=== PATIENT | male | born 1960 | race Caucasian/White ===

== ENCOUNTER 2022-08-30 20:58 | Emergency (ER) | payer OTHER, MEDICAID, SELFPAY ==
[2022-08-30 21:52] VITALS: BP 82/50; PULSE 56; RESP 18; TEMP 36.9; O2SAT 94; BMI 31.9
--- NOTE | 2022-08-30 22:02 | DI.RAD.S_ITS ---
PROCEDURE: XR CHEST 1V INDICATIONS: Possible stroke TECHNIQUE: One view of the chest was acquired. COMPARISON: None. FINDINGS: Surgical changes and devices: None. Lungs and pleura: Lungs are clear. No pleural effusions or pneumothorax. Mediastinum: Mediastinal contours appear normal. Heart size is normal. Bones and chest wall: No suspicious bony lesions. Overlying soft tissues appear unremarkable. IMPRESSION: 1. No acute cardiopulmonary disease. Dictated by: Stefano Hawkins M.D. on 08/30/2022 at 23:51 Approved by: Stefano Hawkins M.D. on 08/30/2022 at 23:51
--- NOTE | 2022-08-30 22:03 | DI.CT.S_ITS ---
PROCEDURE: CT HEAD/BRAIN WO CON INDICATIONS: stroke symptoms TECHNIQUE: Noncontrast 4.5 mm thick angled axial sections acquired from the foramen magnum to the vertex, with coronal and sagittal reformats. For radiation dose reduction, the following was used: automated exposure control, adjustment of mA and/or kV according to patient size. COMPARISON: None. FINDINGS: Image quality: Excellent. CSF spaces: Basal cisterns are patent. No extra-axial fluid collections. Ventricles are normal in size and shape. Brain: No intracranial hemorrhage, mass, or mass effect. Dos Santos-white matter interface appears preserved. Skull and face: Calvarium and visualized facial bones are intact, without suspicious lesions. Sinuses: Visualized sinuses and mastoids are clear. IMPRESSION: 1. No acute intracranial abnormality. Dictated by: Stefano Hawkins M.D. on 08/30/2022 at 23:50 Approved by: Stefano Hawkins M.D. on 08/30/2022 at 23:51
--- NOTE | 2022-08-30 22:31 | ED.HA ---
HPI - Headache General Chief Complaint: Headache Stated Complaint: Vomiting, Hallucinating, Headache Time Seen by Provider: 08/30/22 22:27 Mode of arrival: Ambulatory History of Present Illness HPI Narrative: Patient is a 61-year-old male history of hypertension presents today with headache hallucinations. He reports that he maybe has not been feeling quite right today possibly a little dizzy and lightheaded but able to function without any difficulty. Sat on his porch he and his son smokes some marijuana. Smoked some waited about 30 minutes smoke some more about 30 minutes later he started not feeling right. Started having some hallucinations had a headache. Just not acting quite right. Son called other family members who brought him to the ER. Initially he is actually hypotensive with a blood pressure of 82/50. He is afebrile heart rate is 56. Patient reports that he was at [facility] he had 3 separate surgeries on his right arm. He had a fracture in his humerus. Related Data Home Medications Medication Instructions Recorded Confirmed hydroxyzine HCl 25 mg tablet 25 mg PO PRN PRN Insomnia 08/30/22 08/30/22 lisinopril 20 1 tab PO DAILY 08/30/22 08/30/22 mg-hydrochlorothiazide 25 mg tablet Allergies Allergy/AdvReac Type Severity Reaction Status Date / Time No Known Drug Allergies Allergy Verified 08/30/22 22:00 Review of Systems Review of Systems ROS Unobtainable: All systems reviewed & are unremarkable except as noted in HPI and below Patient History Social History Smoking Status: Former smoker Smoking Status: Former smoker alcohol intake frequency: a few times a week Substance Use Type: marijuana Exam Initial Vital Signs Initial Vital Signs: Vital Signs Temperature 98.5 F 08/30/22 21:52 Pulse Rate 56 L 08/30/22 21:52 Respiratory Rate 18 08/30/22 21:52 Blood Pressure 82/50 L 08/30/22 21:52 Pulse Oximetry 94 08/30/22 21:52 Oxygen Delivery Method Room Air 08/30/22 21:52 GENERAL: Slightly pale 61-year-old male HEENT: Head atraumatic,EOMI, pupils reactive, face symmetric, moist mucous membranes CARDIOVASCULAR: Regular rate and rhythm without murmurs, rubs or gallops. RESPIRATORY: Breath sounds equal bilaterally, no wheezes rales or rhonchi. ABDOMEN: Soft, nontender. Normoactive bowel sounds all 4 quadrants. No guarding or rebound. EXTREMITIES: Normal range of motion, no clubbing or edema. Neurovascularly intact Right arm in splint NEUROLOGICAL: Alert and oriented x4. Moving all extremities SKIN: Warm, dry, no laceration, no petechiae, no rashes or lesions. Course Orders Ordered: ED Orders 08/30/22 22:02 XR chest 1V Stat EKG-12 Lead Stat 08/30/22 22:03 CT head/brain wo con Stat 08/30/22 22:40 Acetaminophen Stat COVID19 -Nasal RAPID Stat Complete Blood Count AUTO DIFF Stat Comprehensive Metabolic Panel Stat ETOH [Ethanol (ETOH)] Stat Lactate (Lactic Acid) Stat Magnesium Stat PTT Partial Thromboplastin Serafin Stat Prothrombin Time INR Stat Troponin & CK Cardiac Panel Stat 08/30/22 22:57 Urine Drug Screen, Rapid Stat 08/30/22 23:22 Blood Culture Stat 08/31/22 02:55 BMP [Basic Metabolic Panel] Stat Discontinued Medications Sodium Chloride (Normal Saline 0.9%) 1,000 mls @ 1,000 mls/hr IV BOLUS ONE Stop: 08/30/22 23:26 Last Infusion: 08/31/22 01:11 Dose: 0 mls/hr Documented By: Admin: 08/30/22 23:12 Dose: 1,000 mls/hr Documented By: OC Sodium Chloride (Normal Saline 0.9%) 1,000 mls @ 1,000 mls/hr IV BOLUS ONE Stop: 08/31/22 02:42 Last Infusion: 08/31/22 03:01 Dose: 0 mls/hr Documented By: Admin: 08/31/22 01:51 Dose: 1,000 mls/hr Documented By: OC Ondansetron HCl (Ondansetron 4 Mg Odt) 4 mg SL NOW PRN PRN Reason: Nausea And Vomiting Ondansetron HCl (Ondansetron 4 Mg/2 Ml Inj) 4 mg IV NOW PRN PRN Reason: Nausea And Vomiting Vital Signs Vital signs: Vital Signs - 8 hr 08/30/22 23:26 08/30/22 23:30 08/30/22 23:46 Pulse Rate 57 L 58 L 56 L Respiratory Rate 19 22 19 Blood Pressure Pulse Oximetry 95 95 95 Oxygen Delivery Method 08/30/22 23:46 08/30/22 23:49 08/30/22 23:49 Pulse Rate 57 L Respiratory Rate 18 Blood Pressure 87/48 L 102/56 L Pulse Oximetry 96 Oxygen Delivery Method 08/30/22 23:50 08/30/22 23:50 08/31/22 00:00 Pulse Rate 59 L Respiratory Rate 22 Blood Pressure 122/58 L 93/50 L Pulse Oximetry 96 Oxygen Delivery Method 08/31/22 00:00 08/31/22 00:15 08/31/22 00:15 Pulse Rate 56 L 53 L Respiratory Rate 23 23 Blood Pressure 91/54 L Pulse Oximetry 95 95 Oxygen Delivery Method 08/31/22 00:30 08/31/22 00:30 08/31/22 00:45 Pulse Rate 54 L 57 L Respiratory Rate 21 34 H Blood Pressure 93/55 L Pulse Oximetry 95 95 Oxygen Delivery Method 08/31/22 00:45 08/31/22 01:00 08/31/22 01:00 Pulse Rate 58 L Respiratory Rate 35 H Blood Pressure 100/60 101/60 Pulse Oximetry 94 Oxygen Delivery Method 08/31/22 01:15 08/31/22 01:15 08/31/22 01:30 Pulse Rate 52 L Respiratory Rate 20 Blood Pressure 97/56 L 102/60 Pulse Oximetry 94 Oxygen Delivery Method 08/31/22 01:30 08/31/22 01:45 08/31/22 01:45 Pulse Rate 57 L 55 L Respiratory Rate 23 23 Blood Pressure 96/58 L Pulse Oximetry 94 94 Oxygen Delivery Method 08/31/22 02:00 08/31/22 02:01 08/31/22 02:01 Pulse Rate 56 L 53 L Respiratory Rate 16 20 Blood Pressure 106/64 Pulse Oximetry 95 95 Oxygen Delivery Method 08/31/22 02:15 08/31/22 02:15 08/31/22 02:30 Pulse Rate 54 L Respiratory Rate 25 H Blood Pressure 119/65 108/61 Pulse Oximetry 96 Oxygen Delivery Method 08/31/22 02:30 08/31/22 02:45 08/31/22 03:00 Pulse Rate 55 L Respiratory Rate 15 Blood Pressure 119/69 122/72 Pulse Oximetry 96 Oxygen Delivery Method 08/31/22 03:00 08/31/22 03:15 08/31/22 03:15 Pulse Rate 60 52 L Respiratory Rate 28 H 21 Blood Pressure 111/65 Pulse Oximetry 95 95 Oxygen Delivery Method Room Air MDM - Headache Lab Data 08/30/22 22:40 08/31/22 02:55 Labs: Lab Results 08/30/22 08/30/22 08/30/22 Range/Units 22:40 22:40 22:40 WBC 12.4 H (4.5-11.0) X10^3/uL RBC 4.40 L (4.5-5.9) X10^6/uL Hgb 13.2 L (13.5-17.5) g/dL Hct 38.4 L (41-53) % MCV 87.3 (80-100) fL MCH 29.9 (26-34) PG MCHC 34.3 (30-36) % RDW 14.1 (11.6-14.8) % Plt Count 267 (150-400) X10^3/uL Neut % (Auto) 79.1 H (50-75) % Lymph % (Auto) 11.5 L (25-40) % Kay % (Auto) 7.7 (3-14) % Eos % (Auto) 1.0 L (2-4) % Baso % (Auto) 0.7 (0-2) % Neut # (Auto) 9800 H (5733-2962) /uL Lymph # (Auto) 1400 (5716-4678) /uL Kay # (Auto) 1000 H (0-900) /uL Eos # (Auto) 100 (0-450) /uL Baso # (Auto) 100 (0-100) /uL PT 12.1 (10.1-12.7) SECONDS INR 1.1 (0.9-1.3) APTT 24 L (26-36) SECONDS Sodium 139 (137-145) mmol/L Potassium 4.8 (3.4-5.1) mmol/L Chloride 99 (98-107) mmol/L Carbon Dioxide 32 (22-32) mmol/L BUN 35 H (9-20) mg/dL Creatinine 2.35 H (0.66-1.25) mg/dL Estimated GFR 31 L (>60) mL/min BUN/Creatinine Ratio 14.9 (6-22) Glucose 126 H (80-110) mg/dL Lactate (0.7-2.1) mmol/L Calcium 9.5 (8.4-10.2) mg/dL Magnesium 1.8 (1.6-2.3) mg/dL Total Bilirubin 0.3 (0.2-1.3) mg/dL AST 22 (17-59) IU/L ALT 17 (<50) IU/L Alkaline Phosphatase 63 (38-126) U/L Total Creatine Kinase 49 L (55-170) U/L CK-MB (CK-2) TNP CK-MB (CK-2) Rel Index TNP Troponin I 0.018 (0.01-0.034) ng/mL Total Protein 8.2 (6.3-8.2) g/dL Albumin 4.6 (3.5-5.0) g/dL Globulin 3.6 (1.7-4.1) g/dL Albumin/Globulin Ratio 1.3 (1.0-2.8) U Opiates 300ng/mL cut (Negative) Ur Oxycodone Screen (Negative) Urine Methadone Screen (Negative) Acetaminophen (10-30) ug/mL Ur Barbiturates Screen (Negative) U Tricyclic Antidepress (Negative) Ur Phencyclidine Scrn (Negative) Ur Amphetamines Screen (Negative) U Methamphetamines Scrn (Negative) Ur MDMA Scrn (Ecstasy) (Negative) U Benzodiazepines Scrn (Negative) Urine Cocaine Screen (Negative) U Marijuana (THC) Screen (Negative) Ethyl Alcohol ( - 10) mg/dL SARS-CoV-2 (PCR) (Negative) 08/30/22 08/30/22 08/30/22 Range/Units 22:40 22:40 22:40 WBC (4.5-11.0) X10^3/uL RBC (4.5-5.9) X10^6/uL Hgb (13.5-17.5) g/dL Hct (41-53) % MCV (80-100) fL MCH (26-34) PG MCHC (30-36) % RDW (11.6-14.8) % Plt Count (150-400) X10^3/uL Neut % (Auto) (50-75) % Lymph % (Auto) (25-40) % Kay % (Auto) (3-14) % Eos % (Auto) (2-4) % Baso % (Auto) (0-2) % Neut # (Auto) (7827-7561) /uL Lymph # (Auto) (3487-1680) /uL Kay # (Auto) (0-900) /uL Eos # (Auto) (0-450) /uL Baso # (Auto) (0-100) /uL PT (10.1-12.7) SECONDS INR (0.9-1.3) APTT (26-36) SECONDS Sodium (137-145) mmol/L Potassium (3.4-5.1) mmol/L Chloride (98-107) mmol/L Carbon Dioxide (22-32) mmol/L BUN (9-20) mg/dL Creatinine (0.66-1.25) mg/dL Estimated GFR (>60) mL/min BUN/Creatinine Ratio (6-22) Glucose (80-110) mg/dL Lactate 1.7 (0.7-2.1) mmol/L Calcium (8.4-10.2) mg/dL Magnesium (1.6-2.3) mg/dL Total Bilirubin (0.2-1.3) mg/dL AST (17-59) IU/L ALT (<50) IU/L Alkaline Phosphatase (38-126) U/L Total Creatine Kinase (55-170) U/L CK-MB (CK-2) CK-MB (CK-2) Rel Index Troponin I (0.01-0.034) ng/mL Total Protein (6.3-8.2) g/dL Albumin (3.5-5.0) g/dL Globulin (1.7-4.1) g/dL Albumin/Globulin Ratio (1.0-2.8) U Opiates 300ng/mL cut (Negative) Ur Oxycodone Screen (Negative) Urine Methadone Screen (Negative) Acetaminophen < 10 (10-30) ug/mL Ur Barbiturates Screen (Negative) U Tricyclic Antidepress (Negative) Ur Phencyclidine Scrn (Negative) Ur Amphetamines Screen (Negative) U Methamphetamines Scrn (Negative) Ur MDMA Scrn (Ecstasy) (Negative) U Benzodiazepines Scrn (Negative) Urine Cocaine Screen (Negative) U Marijuana (THC) Screen (Negative) Ethyl Alcohol < 10 ( - 10) mg/dL SARS-CoV-2 (PCR) Negative (Negative) 08/30/22 08/31/22 Range/Units 22:57 02:55 WBC (4.5-11.0) X10^3/uL RBC (4.5-5.9) X10^6/uL Hgb (13.5-17.5) g/dL Hct (41-53) % MCV (80-100) fL MCH (26-34) PG MCHC (30-36) % RDW (11.6-14.8) % Plt Count (150-400) X10^3/uL Neut % (Auto) (50-75) % Lymph % (Auto) (25-40) % Kay % (Auto) (3-14) % Eos % (Auto) (2-4) % Baso % (Auto) (0-2) % Neut # (Auto) (2756-1013) /uL Lymph # (Auto) (4099-5187) /uL Kay # (Auto) (0-900) /uL Eos # (Auto) (0-450) /uL Baso # (Auto) (0-100) /uL PT (10.1-12.7) SECONDS INR (0.9-1.3) APTT (26-36) SECONDS Sodium 138 (137-145) mmol/L Potassium 4.5 (3.4-5.1) mmol/L Chloride 106 (98-107) mmol/L Carbon Dioxide 25 (22-32) mmol/L BUN 34 H (9-20) mg/dL Creatinine 1.62 H (0.66-1.25) mg/dL Estimated GFR 48 L (>60) mL/min BUN/Creatinine Ratio 21.0 (6-22) Glucose 106 (80-110) mg/dL Lactate (0.7-2.1) mmol/L Calcium 8.3 L (8.4-10.2) mg/dL Magnesium (1.6-2.3) mg/dL Total Bilirubin (0.2-1.3) mg/dL AST (17-59) IU/L ALT (<50) IU/L Alkaline Phosphatase (38-126) U/L Total Creatine Kinase (55-170) U/L CK-MB (CK-2) CK-MB (CK-2) Rel Index Troponin I (0.01-0.034) ng/mL Total Protein (6.3-8.2) g/dL Albumin (3.5-5.0) g/dL Globulin (1.7-4.1) g/dL Albumin/Globulin Ratio (1.0-2.8) U Opiates 300ng/mL cut Negative (Negative) Ur Oxycodone Screen Negative (Negative) Urine Methadone Screen Negative (Negative) Acetaminophen (10-30) ug/mL Ur Barbiturates Screen Negative (Negative) U Tricyclic Antidepress Negative (Negative) Ur Phencyclidine Scrn Negative (Negative) Ur Amphetamines Screen Negative (Negative) U Methamphetamines Scrn Negative (Negative) Ur MDMA Scrn (Ecstasy) Negative (Negative) U Benzodiazepines Scrn Negative (Negative) Urine Cocaine Screen Negative (Negative) U Marijuana (THC) Screen Positive H (Negative) Ethyl Alcohol ( - 10) mg/dL SARS-CoV-2 (PCR) (Negative) Point of Care Testing Glucose POC 126 Urine Dip Bedside Urine Glucose Negative Bedside Urine Bilirubin - Negative Bedside Urine Ketone - Negative Urine Specific [place] 1.020 Bedside Urine Occult Blood - Negative Bedside Urine pH 5.5 Bedside Urine Protein - Negative Bedside Urine Urobilinogen - Negative Bedside Urine Nitrite - Negative Bedside Urine Leukocytes - Negative Esterase Imaging Data CT scan - head: Radiologist's Impression: PROCEDURE:? CT HEAD/BRAIN WO CON ? INDICATIONS:? stroke symptoms ? TECHNIQUE:? Noncontrast 4.5 mm thick angled axial sections acquired from the foramen magnum to the vertex, with coronal and sagittal reformats.? For radiation dose reduction, the following was used:? automated exposure control, adjustment of mA and/or kV according to patient size.? ? COMPARISON:? None. ? FINDINGS:? Image quality:? Excellent.? ? CSF spaces:? Basal cisterns are patent.? No extra-axial fluid collections.? Ventricles are normal in size and shape.? ? Brain:? No intracranial hemorrhage, mass, or mass effect.? Dos Santos-white matter interface appears preserved.? ? Skull and face:? Calvarium and visualized facial bones are intact, without suspicious lesions.? ? Sinuses:? Visualized sinuses and mastoids are clear.? ? IMPRESSION:? ? 1. No acute intracranial abnormality. ? ? Dictated by: Stefano Hawkins M.D. on 08/30/2022 at 23:50 ?? ECG Data Interpretation: Normal sinus rhythm rate 56 NM interval 150 QRS [address] changes no T-wave inversions MDM Narrative Medical decision making narrative: Patient presents today with Friday of symptoms. Reports not feeling great today smoking marijuana than starting having hallucinations not acting right headache. He was noted to be quite hypotensive here. Mild leukocytosis of 12. He does not have fever or chills no evidence of infection. Lactate 1.7. Tox screen is positive only for marijuana. His son with smoke the same marijuana did not have the same reaction. He is noted have increased creatinine at 2.37 unknown what his baseline is. According to records he is also on lisinopril/hydrochlorothiazide. He is no focal deficits to suggest stroke EKG is within normal limits. Blood pressure quickly improved with IV fluids. Repeat creatinine is 1.62 suggesting dehydration. At this time he feels better. Probably combination of marijuana causing some hallucinations and dehydration likely causing his symptoms. No concern for sepsis at this time he has remained afebrile from many hours Discharge Plan Departure Patient Disposition: Home Clinical Impression: Dehydration Instructions: Dehydration Activity Restrictions/Additional Instructions: *You have been diagnosed with dehydration *What to do: At this time you are dehydrated. Your creatinine was 2.35 and after hydration it is now 1.62. This may be important for your doctors. Please continue to drink fluids such as Gatorade, water *Continue to take medications as directed *Follow up with your primary care provider in 2-3 days or call [phone] *Return to ER if you should have passing out chest pain worsening hallucinations or any new, worsening or concerning symptoms Prescriptions: No Action lisinopril-hydrochlorothiazide 20-25 mg tablet 1 tab PO DAILY hydroxyzine HCl 25 mg tablet 25 mg PO PRN PRN (Reason: Insomnia) Stand Alone Forms: Patient Portal/API
[2022-08-30 22:59] LABS: Add Manual Diff / Slide Review NO; Basophils Absolute Auto 100 /uL (0-100); Basophils Percent Auto 0.7 % (0-2); Eosinophils Absolute Auto 100 /uL (0-450); Hematocrit 38.4 % (41-53); Hemoglobin 13.2 g/dL (13.5-17.5); Lymphocytes Absolute Auto 1400 /uL (1100-4500); Lymphocytes Percent Auto 11.5 % (25-40); Mean Corpuscular HGB Conc 34.3 % (30-36); Mean Corpuscular Hemoglobin 29.9 PG (26-34); Mean Corpuscular Volume 87.3 fL (80-100); Monocytes Absolute Auto 1000 /uL (0-900); Monocytes Percent Auto 7.7 % (3-14); Neutrophils Absolute Auto 9800 /uL (1500-7000); Neutrophils Percent Auto 79.1 % (50-75); Platelet Count 267 X10^3/uL (150-400); Red Cell Distribution Width 14.1 % (11.6-14.8); White Blood Cell Count 12.4 X10^3/uL (4.5-11.0)
[2022-08-30 23:04] LABS: UR Morphine/Opiate cutoff 300 Negative (Negative); Ur Creatinine Normal (Normal); Ur Specific Gravity Normal (Normal); Urine Amphetamines Negative (Negative); Urine Barbiturates Negative (Negative); Urine Benzodiazepines Negative (Negative); Urine Cocaine Negative (Negative); Urine MDMA Negative (Negative); Urine Methadone Negative (Negative); Urine Methamphetamines Negative (Negative); Urine Oxycodone Negative (Negative); Urine Phencyclidine Negative (Negative); Urine Tetrahydrocannabinol Positive (Negative); Urine Tricyclic Antidepressant Negative (Negative); Urine pH Normal (Normal)
[2022-08-30 23:06] LABS: INR 1.1 (0.9-1.3); Prothrombin Time 12.1 SECONDS (10.1-12.7)
[2022-08-30 23:09] LABS: PTT Partial Thromboplastin Tim 24 SECONDS (26-36)
[2022-08-30 23:11] LABS: Acetaminophen < 10 ug/mL (10-30); Ethanol (ETOH) < 10 mg/dL
[2022-08-30] MEDS: SODIUM CHLORIDE 0.9% 1,000 ML 1000 ML IV (23:12)
[2022-08-30 23:16] LABS: Alanine Aminotransferase 17 IU/L (<50); Albumin 4.6 g/dL (3.5-5.0); Albumin Globulin Ratio 1.3 (1.0-2.8); Alkaline Phosphatase 63 U/L (38-126); Aspartate Aminotransferase 22 IU/L (17-59); BUN Creatinine Ratio 14.9 (6-22); Bilirubin Total 0.3 mg/dL (0.2-1.3); Blood Urea Nitrogen 35 mg/dL (9-20); Calcium 9.5 mg/dL (8.4-10.2); Carbon Dioxide 32 mmol/L (22-32); Chloride 99 mmol/L (98-107); Creatine Kinase 49 U/L (55-170); Estimated Glomerular Filt Rate 31 mL/min (>60); Globulin 3.6 g/dL (1.7-4.1); Glucose 126 mg/dL (80-110); HEMOLYSIS < 15 (0-50); Magnesium 1.8 mg/dL (1.6-2.3); Potassium 4.8 mmol/L (3.4-5.1); Sodium 139 mmol/L (137-145); Total Protein 8.2 g/dL (6.3-8.2)
[2022-08-30 23:24] LABS: COVID19 -Nasal RAPID Negative (Negative)
[2022-08-30 23:26] VITALS: PULSE 57; RESP 19; O2SAT 95
[2022-08-30 23:26] LABS: Troponin I 0.018 ng/mL (0.01-0.034)
[2022-08-30 23:30] VITALS: PULSE 58; RESP 22; O2SAT 95
[2022-08-30 23:31] LABS: Lactate (Lactic Acid) 1.7 mmol/L (0.7-2.1)
[2022-08-30 23:46] VITALS: BP 87/48; PULSE 56; RESP 19; O2SAT 95
[2022-08-30 23:49] VITALS: BP 102/56; PULSE 57; RESP 18; O2SAT 96
[2022-08-30 23:50] VITALS: BP 122/58; PULSE 59; RESP 22; O2SAT 96
[2022-08-31] VITALS (15 sets, daily range): BP systolic 91–122; BP diastolic 50–72; PULSE 52–60; RESP 15–35; O2SAT 94–96
[2022-08-31] MEDS: SODIUM CHLORIDE 0.9% 1,000 ML 1000 ML IV (01:51)
[2022-08-31 03:16] LABS: Blood Urea Nitrogen 34 mg/dL (9-20); Calcium 8.3 mg/dL (8.4-10.2); Carbon Dioxide 25 mmol/L (22-32); Chloride 106 mmol/L (98-107); Estimated Glomerular Filt Rate 48 mL/min (>60); Glucose 106 mg/dL (80-110); Sodium 138 mmol/L (137-145)
[2022-08-31 03:19] LABS: HEMOLYSIS 68 (0-50); Potassium 4.5 mmol/L (3.4-5.1)
== END 2022-08-31 03:37 | disposition home or self-care (01) ==
PROVIDERS: Emergency Provider Emergency Medicine
DX: E86.0 Dehydration (principal); R51.9 Headache, unspecified; Z20.822 Contact with and (suspected) exposure to COVID-19; F12.90 Cannabis use, unspecified, uncomplicated
CPT/HCPCS: 36415; 70450; 71045; 80048; 80053; 80305; 80320; 80329; 81003; 82550; 82553; 82962; 83605; 83735; 84484; 85025; 85610; 85730; 87040; 87635; 93005; 96360; 96361; 99284; 99285; C9803; G0480